=== PATIENT | female | born 1985 | race Caucasian/White ===

== ENCOUNTER 2016-09-04 07:01 | Inpatient (IN) | payer OTHER ==
[~2016-09-04] VITALS: Ht 175.3 cm; Wt 92.5 kg
[2016-09-04] MEDS ORDERED: LR 1,000 ML IV ONE (07:36)
[2016-09-04] MEDS ORDERED: CEFAZOLIN 2 GM IVPB PREMIX 50 ML IV ONE (07:45)
[2016-09-04] MEDS ORDERED: LR 1,000 ML IV.SOLN IV ONE (09:05)
[2016-09-04] MEDS ORDERED: MIDAZOLAM HCL 5 MG/5 ML VIAL IVP ONE (09:05)
[2016-09-04] MEDS ORDERED: ONDANSETRON HCL 4 MG/2 ML VIAL IVP ONE (09:05)
[2016-09-04] MEDS ORDERED: MORPHINE SULFATE 10MG/10ML PF AMP EP ONE (09:05)
[2016-09-04] MEDS ORDERED: NS 1000 ML BAG IV ONE (09:05)
[2016-09-04] MEDS ORDERED: ePHEDrine sulfate 50 MG/ML VIAL IV ONE (09:05)
[2016-09-04 09:29] LABS: BILIRUBIN,URINE NEGATIVE (NEGATIVE); BLOOD, URINE NEGATIVE (NEGATIVE); CLARITY/URINE SL HAZY (CLEAR); COLOR,URINE YELLOW (YELLOW); GLUCOSE,URINE NEGATIVE (NEGATIVE); KETONES,URINE NEGATIVE (NEGATIVE); LEUKOCYTE ESTERASE ,URINE 3+ (NEGATIVE); NITRITE, URINE NEGATIVE (NEGATIVE); PH,URINE 6.5 (5.0-8.0); PROTEIN URINE NEGATIVE (NEGATIVE); UROBILINOGEN,URINE 0.2 (0.2-1.0)
[2016-09-04 09:43] LABS: BACTERIA,URINE MODERATE /HPF (None Seen); RBC,URINE 0-3 /HPF (0-3); WBC,URINE 20-50 /HPF (0-3)
[2016-09-04] MEDS ORDERED: LR 1,000 ML IV SCH ×2 (09:49→10:26)
[2016-09-04] MEDS ORDERED: MORPHINE SULFATE 10MG/10ML PF AMP SP SCH (10:00)
[2016-09-04] MEDS ORDERED: KETOROLAC TROMETHAMINE 60 MG/2 ML VIAL IM PRN (10:00)
[2016-09-04] MEDS ORDERED: DIPHENHYDRAMINE INJ 50 MG/ML VIAL IM PRN (10:00)
[2016-09-04] MEDS ORDERED: NALOXONE HCL 0.4 MG/ML AMP (NARCAN) IVP PRN (10:00)
[2016-09-04] MEDS ORDERED: MORPHINE 4 MG/ML INJ. SYRINGE IVP PRN ×3 (10:00)
[2016-09-04] MEDS ORDERED: ONDANSETRON HCL 4 MG/2 ML VIAL IVP PRN (10:00)
[2016-09-04] MEDS ORDERED: METOCLOPRAMIDE HCL 10 MG/2 ML VIAL IVP PRN (10:00)
[2016-09-04] MEDS ORDERED: OXYTOCIN/NORMAL SALINE 1,000 ML IV ONE ×2 (10:26→10:54)
[2016-09-04] MEDS ORDERED: SIMETHICONE 80 MG TAB.CHEW PO PRN (10:30)
[2016-09-04] MEDS ORDERED: SENNOSIDES/DOCUSATE SODIUM 1 TAB TABLET(SENOKOT-S) PO PRN (10:30)
[2016-09-04] MEDS ORDERED: LANOLIN 7 GM OINT. TP PRN (10:30)
[2016-09-04] MEDS ORDERED: ANUSOL 1 EA SUPP.RECT (PREPARATION H) RC PRN (10:30)
[2016-09-04] MEDS ORDERED: ACETAMINOPHEN 325 MG TABLET PO PRN (10:30)
[2016-09-04] MEDS ORDERED: BISACODYL 10 MG/SUPPOSITORY RC PRN (10:30)
[2016-09-04] MEDS ORDERED: RHO(D) IMMUNE GLOBULIN/MALTOSE 1500 UNITS/1.3 ML (WINHRO) IM PRN (10:30)
[2016-09-04] MEDS ORDERED: MEASLES,MUMPS&RUBELLA VACC/PF 12500 UNIT/0.5 ML VIAL SUBQ PRN (10:30)
[2016-09-04 10:35] VITALS: BP_SYST 103
[2016-09-04] MEDS ORDERED: TEMAZEPAM 15 MG CAPSULE PO PRN (21:00)
[2016-09-04] MEDS: IBUPROFEN 600 MG TABLET PO SCH (23:09)
[2016-09-04] MEDS: DOCUSATE SODIUM 100 MG CAPSULE PO PRN (23:09)
[2016-09-05 07:34] LABS: BASOPHILS % (AUTO) 0.2 % (0.0-2.0); EOSINOPHILS # (AUTO) 0.2 K/uL (0.0-0.4); EOSINOPHILS % (AUTO) 1.4 % (0.0-4.0); HEMATOCRIT 33.5 % (36-48); LYMPHOCYTES # (AUTO) 1.7 K/uL (1.0-5.5); LYMPHOCYTES % (AUTO) 15.1 % (20.5-51.5); MEAN CORPUSCULAR HEMOGLOBIN 31 pg (27-31); MEAN CORPUSCULAR HGB CONC 33 % (32-36); MEAN CORPUSCULAR VOLUME 94 fL (79.0-98.0); MONOCYTES # (AUTO) 0.4 K/uL (0.0-1.0); NEUTROPHILS # (AUTO) 8.7 K/uL (1.8-7.7); NEUTROPHILS % (AUTO) 79.3 % (40.0-70.0); PLATELET COUNT (AUTO) 179 K/uL (130-430); RED BLOOD CELL COUNT(AUTO) 3.56 MIL/uL (4.2-6.2)
[2016-09-05] MEDS: OXYCODONE/ACETAMINOPHEN 5-325 TABLET PO PRN ×3 (09:13→22:04)
[2016-09-05] MEDS: IBUPROFEN 600 MG TABLET PO SCH ×3 (11:53→17:35)
[2016-09-05] MEDS: DOCUSATE SODIUM 100 MG CAPSULE PO PRN ×2 (11:54→22:04)
[2016-09-06] MEDS: OXYCODONE/ACETAMINOPHEN 5-325 TABLET PO PRN ×2 (03:58→11:12)
[2016-09-06] MEDS: IBUPROFEN 600 MG TABLET PO SCH ×2 (06:00→12:27)
[2016-09-06] MEDS: DOCUSATE SODIUM 100 MG CAPSULE PO PRN (11:12)
--- NOTE | 2016-09-06 18:16 | NUR ---
HEAD WAITER/WAITRESS faxed pt's discharge order to Johanny Ordoñez ([phone]).
== END 2016-09-06 18:00 | disposition home or self-care (01) | DRG 766 ==
LOC: SPU 07:01
PROVIDERS: ADMIT Obstetrics & Gynecology; ATTEND Obstetrics & Gynecology
PROC: 3E0234Z Introduction of Serum, Toxoid and Vaccine into Muscle, Percutaneous Approach (ICD-10-PCS; 2016-09-04)
PROC: 10D00Z1 Extraction of Products of Conception, Low, Open Approach (ICD-10-PCS; principal; 2016-09-04 09:00)
DX: O44.43 Low lying placenta NOS or without hemorrhage, third trimester (principal); Z37.0 Single live birth; Z3A.38 38 weeks gestation of pregnancy; Z23 Encounter for immunization
CPT/HCPCS: 36415; 81000-TC; 85025; 86886; 86900; 86901; 87086; 94760; J0690; J1885; J2250; J2274; J2405; J2590; J7030; J7120